=== PATIENT | male | born 1990 | race Caucasian/White ===

== ENCOUNTER 2017-03-26 15:53 | Emergency (ER) | payer MEDICAID ==
[~2017-03-26] VITALS: Ht 182.9 cm; Wt 74.8 kg
[2017-03-26 16:05] VITALS: BP 116/65
== END 2017-03-26 17:09 | disposition home or self-care (01) ==
LOC: ER 16:03
DX: H60.91 Unspecified otitis externa, right ear (principal); F17.210 Nicotine dependence, cigarettes, uncomplicated; F12.10 Cannabis abuse, uncomplicated; F15.10 Other stimulant abuse, uncomplicated

== ENCOUNTER 2017-06-28 20:11 | Emergency (ER) | payer MEDICAID ==
[~2017-06-28] VITALS: Ht 180.3 cm; Wt 74.8 kg
[2017-06-28 21:00] VITALS: BP 128/76
== END 2017-06-28 21:35 | disposition home or self-care (01) ==
LOC: ER 20:11
DX: K08.89 Other specified disorders of teeth and supporting structures (principal); F17.210 Nicotine dependence, cigarettes, uncomplicated; F12.10 Cannabis abuse, uncomplicated; F15.10 Other stimulant abuse, uncomplicated; F11.10 Opioid abuse, uncomplicated

== ENCOUNTER 2021-01-27 21:54 | Emergency (ER) | payer MEDICAID ==
[~2021-01-27] VITALS: Ht 182.9 cm; Wt 72.6 kg
[2021-01-27 22:02] VITALS: BP 104/64
[2021-01-27 22:38] LABS: Basophils # (auto) 0.1 10 ^3/uL (0-0.2); Basophils % (auto) 1.1 % (0.0-2.0); Eosinophils # (auto) 0.2 10 ^3/uL (0-0.8); Eosinophils % (auto) 2.2 % (0.0-7.0); Hematocrit 40.5 % (41.0-53.0); Hemoglobin 13.8 g/dL (13.5-17.5); Lymphocytes # (auto) 2.1 10 ^3/uL (0.4-5.4); Lymphocytes % (auto) 30.2 % (10.0-50.0); Mean Corpuscular Hemoglobin 28.6 pg (28.0-32.0); Monocytes # (auto) 0.7 10 ^3/uL (0-1.3); Monocytes % (auto) 10.1 % (0.0-12.0); Neutrophils # (auto) 3.8 10 ^3/uL (1.6-8.6); Neutrophils % (auto) 56.4 % (37.0-80.0); Platelet Count (auto) 178 10^3/uL (140-450); Red Blood Cells 4.82 10^6/uL (4.5-5.90); Red Cell Distribution Width 13.6 % (11.8-14.3); White Blood Cell 6.8 10^3/uL (4.4-10.8)
[2021-01-27 23:05] LABS: Albumin 4.1 g/dL (3.4-5.0); Anion Gap 5 (5-15); Blood Urea Nitrogen 15 mg/dL (7-18); Carbon Dioxide 26 mmol/L (21-32); Chloride 110 mmol/L (98-107); Glucose 90 mg/dL (74-106); Magnesium 2.2 mg/dL (1.6-2.6); Sodium 141 mmol/L (136-145)
[2021-01-27 23:06] LABS: Alanine Aminotransferase 137 U/L (16-61); Aspartate Aminotransferase 58 U/L (15-37); BUN/Creatinine Ratio 20.5; Blood Alcohol < 3.0 mg/dL (0-5); GFR African American 162 mL/min; GFR Non-African American 134 mL/min; Salicylate < 1.7 mg/dL (2.8-20.0)
[2021-01-27 23:10] LABS: Alkaline Phosphatase 101 U/L (45-117); Total Protein 7.7 g/dL (6.4-8.2)
[2021-01-27 23:14] LABS: Acetaminophen < 2.0 ug/mL (10-30)
== END 2021-01-28 01:00 | disposition left against medical advice (07) ==
LOC: EDBD 21:54 → ER 21:56
DX: F10.129 Alcohol abuse with intoxication, unspecified (principal); Z53.21 Procedure and treatment not carried out due to patient leaving prior to being seen by health care provider; Y90.0 Blood alcohol level of less than 20 mg/100 ml
CPT/HCPCS: 36415; 80053; 80320; 80329; 83735; 85025

== ENCOUNTER 2021-01-28 03:27 | Emergency (ER) | payer MEDICAID ==
[~2021-01-28] VITALS: Ht 180.3 cm; Wt 93.0 kg
[2021-01-28 03:45] VITALS: BP 104/75
== END 2021-01-28 03:56 | disposition left against medical advice (07) ==
LOC: ER 03:30
DX: Z53.21 Procedure and treatment not carried out due to patient leaving prior to being seen by health care provider

== ENCOUNTER 2023-03-09 02:26 | Emergency (ER) | payer MEDICAID ==
[~2023-03-09] VITALS: Ht 180.3 cm; Wt 92.7 kg
[2023-03-09 02:56] VITALS: BP 113/41; PULSE 106; RESP 16; O2SAT 95
== END 2023-03-09 06:08 | disposition left against medical advice (07) ==
LOC: ER 02:28
DX: M79.89 Other specified soft tissue disorders (principal); Z53.21 Procedure and treatment not carried out due to patient leaving prior to being seen by health care provider